=== PATIENT | female | born 1940 | race Asian ===

== ENCOUNTER 2022-04-27 13:12 | Inpatient (IN) | payer MEDICARE ==
[~2022-04-27] VITALS: Ht 167.6 cm; Wt 61.2 kg
--- NOTE | 2022-04-27 14:16 | NUR ---
DR BENZ AT BEDSIDE FOR EVAL
--- NOTE | 2022-04-27 14:26 | NUR ---
COVID SWAB COLLECTED AND SENT TO LAB
--- NOTE | 2022-04-27 14:52 | NUR ---
urine sample collected and sent to lab
--- NOTE | 2022-04-27 14:59 | NUR ---
PER MATTRESS WEAVER, NOT ENOUGH URINE SAMPLE. INFORMED
[2022-04-27 15:11] LABS: BILIRUBIN,URINE NEGATIVE (NEGATIVE); COLOR,URINE YELLOW (YELLOW); LEUKOCYTE ESTERASE ,URINE TRACE (NEGATIVE); NITRITE, URINE NEGATIVE (NEGATIVE); PROTEIN,URINE NEGATIVE (NEGATIVE); UGLUCOSE NEGATIVE (NEGATIVE)
[2022-04-27 15:13] LABS: BASOPHILS # (AUTO) 0.1 K/uL (0.0-0.2); BASOPHILS % (AUTO) 0.7 % (0.0-2.0); EOSINOPHILS % (AUTO) 1.3 % (0.0-6.0); HEMATOCRIT 38 % (33-45); HEMOGLOBIN 12.2 g/dL (11.5-14.8); LYMPHOCYTES # (AUTO) 1.3 K/uL (0.8-4.8); LYMPHOCYTES % (AUTO) 17.3 % (20.0-44.0); MEAN CORPUSCULAR HGB CONC 32 g/dl (31.0-36.0); MEAN CORPUSCULAR VOLUME 84 fL (82-100); MONOCYTES # (AUTO) 0.6 K/uL (0.1-1.30); MONOCYTES % (AUTO) 7.8 % (2.0-12.0); NEUTROPHILS # (AUTO) 5.4 K/uL (1.8-8.9); NEUTROPHILS % (AUTO) 72.9 % (43.0-81.0); PLATELET COUNT (AUTO) 268 K/uL (150-450); WHITE BLOOD COUNT (AUTO) 7.3 K/uL (4.3-11.0)
[2022-04-27 15:27] LABS: CALCIUM, SERUM 8.7 mg/dL (8.5-10.1); CARBON DIOXIDE 25 mmol/L (21-32); CHLORIDE 108 mmol/L (98-107); CREATININE 0.7 mg/dL (0.6-1.3); GLUCOSE 100 mg/dL (74-106); POTASSIUM 3.7 mmol/L (3.5-5.1); SODIUM SERUM 141 mmol/L (136-145); UREA NITROGEN, BLOOD 27 mg/dL (7-18)
[2022-04-27 15:52] LABS: ALANINE AMINOTRANSFERASE 20 U/L (12-78); ALBUMIN 3.2 g/dL (3.4-5.0); ALCOHOL, BLOOD < 3 mg/dL (0-0); ALKALINE PHOSPHATASE 124 U/L (46-116); ASPARTATE AMINOTRANSFERASE 16 U/L (15-37); BILIRUBIN,DIRECT 0.1 mg/dL (0.0-0.2); BILIRUBIN,TOTAL 0.5 mg/dL (0.2-1.0); TOTAL PROTEIN, SERUM 6.5 g/dL (6.4-8.2)
--- NOTE | 2022-04-27 16:41 | NUR ---
BED 218-B
--- NOTE | 2022-04-27 16:45 | NUR ---
REPORT GIVEN TO CAMILO NAJERA OF [employer]
--- NOTE | 2022-04-27 16:55 | NUR ---
TRANSPORTED TO FLOOR, STABLE CONDITION
[2022-04-27 17:01] LABS: BACTERIA,URINE RARE /HPF (None Seen); RBC,URINE 0-2 /HPF (0-2); WBC,URINE 0-2 /HPF (0-3)
[2022-04-27] MEDS ORDERED: LOSA50TA39 PO (17:54)
[2022-04-27] MEDS ORDERED: MAGNESIUM HYDROXIDE 30 ML UDC PO PRN (18:00)
[2022-04-27] MEDS ORDERED: LORAZEPAM 0.5 MG TABLET PO PRN (18:00)
[2022-04-27] MEDS ORDERED: ACETAMINOPHEN 325 MG TABLET PO PRN (18:00)
[2022-04-27] MEDS ORDERED: MAG HYDROX/AL HYDROX/SIMETH 30 ML UDC PO PRN (18:00)
[2022-04-27] MEDS ORDERED: ZOLPIDEM TARTRATE 5 MG TABLET PO PRN (18:00)
[2022-04-27 18:11] VITALS: BP 145/51
--- NOTE | 2022-04-27 18:30 | NUR ---
RB-CO: NOTIFIED DR RODRIGUEZ REGARDING THIS ADMISSION AND GAVE ADMITTING ORDERS.
[2022-04-27 20:00] VITALS: BP 140/85
[2022-04-27 20:30] VITALS: BP 140/85
[2022-04-27] MEDS ORDERED: BLOOD SUGAR DIAGNOSTIC 1 EACH STRIP IN ONE (21:00)
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
[2022-04-27] MEDS ORDERED: diphenhydrAMINE HCL ELIX 25 MG/10 ML UDC PO PRN (23:00)
[2022-04-27] MEDS ORDERED: diphenhydrAMINE HCL 25 MG CAPSULE PO PRN (23:00)
--- NOTE | 2022-04-28 07:27 | NUR ---
[facility] RN OPENING NOTE RECEIVED PT IN BED AWAKE. A/O X2, ABLE TO MAKE NEEDS KNOWN. REORIENTED PT NEEDED. PT IS COOPERATIVE OF CARE. PT IS CALM WITH NO C/O FEELING ANXIOUSNESS OR IRRITABILITY AT THIS TIME. SAFETY MEASURES IN PLACE AND MAINTAINED. CALL LIGHT WITHIN REACH. WILL CONTINUE TO MONITOR PT.
[2022-04-28 08:00] VITALS: BP 128/52
[2022-04-28 08:03] LABS: ALBUMIN 2.9 g/dL (3.4-5.0); BILIRUBIN,TOTAL 0.7 mg/dL (0.2-1.0); CALCIUM, SERUM 8.7 mg/dL (8.5-10.1); CREATININE 0.6 mg/dL (0.6-1.3); POTASSIUM 3.9 mmol/L (3.5-5.1); TOTAL PROTEIN, SERUM 6.2 g/dL (6.4-8.2)
[2022-04-28] MEDS: LOSARTAN POTASSIUM 50 MG TABLET PO SCH (09:26)
--- NOTE | 2022-04-28 09:28 | NUR ---
RN NOTE PT C/O ITCHINESS IN HER UPPER AND LOWER EXTREMITIES. BENADRYL 25MG 1 CAP GIVEN ORDERED PRN Q8H FOR ITCHING. WILL MONITOR AND REASSESS PT.
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
--- NOTE | 2022-04-28 10:28 | NUR ---
LIZZETTE Initial Discharge Plan: Patient currently was staying at [facility] located at [address] [place] [id number]. Pt unsure if she will return back. LIZZETTE will work with pt, family, and MD to help coordinate appropriate discharge,
--- NOTE | 2022-04-28 10:29 | NUR ---
Treatment Plan: Pt refused to sign treatment plan and was suspicious.
--- NOTE | 2022-04-28 11:44 | NUR ---
LIZZETTE Family Contact: LIZZETTE spoke with patient's daughter Ana ([phone]) who is currently in [place] and will be returning back tomorrow 04/29/2022. She stated that pt lives with her when she comes to [place]. She reported that pt has been here in [place] for a month and then went to the [facility] with her father. Daughter expressed that for the past ten years pt has been have psychiatric issues but has not been treated. She expressed that in [facility] she was seen by a specialist who stated pt has Parkinsons, however, daughter then brought pt to [place] and pt saw a specialist who did an MRI and stated that she does not have Parkinsons and slowly they took pt off the medications. Daughter shared that pt has been delusional stating that people are stealing her house and money. She reported that she has assumptions that father is cheating. She did report that they do have a toxic relationship. Daughter stated that pt needs help and needs to be medicated. Daughter did stated if she would have to take pt back to her place she would. She stated that she is currently in the process of selling her house. LIZZETTE discussed treatment/discharge plan with daughter.
--- NOTE | 2022-04-28 13:01 | NUR ---
[facility] RN NOTE PT IN BED RESTING. A/O X2, ABLE TO MAKE NEEDS KNOWN. REORIENTED PT NEEDED. PT REMAINS COOPERATIVE OF CARE. PT IS CALM WITH NO C/O FEELING ANXIOUSNESS OR IRRITABILITY AT THIS TIME. SAFETY MEASURES MAINTAINED. CALL LIGHT WITHIN REACH. WILL CONTINUE TO MONITOR PT.
--- NOTE | 2022-04-28 13:48 | NUR ---
LIZZETTE Note: Pt's Say ([phone]) came to visit the pt to drop of pt's medication. SW gave to charge nurse Tala. Say had concerns of pt that she has been having delusions and hallucinations. He stated that she has become unmanageable and it has been difficult for him to take care of her.
--- NOTE | 2022-04-28 15:27 | NUR ---
[facility] RN NOTE PT'S BROUGHT IN HER HOME MEDICATION, LEVOTHYROXINE 25MG 1 TAB ONCE A DAY. CALLED DR. DUBOSE AND MADE HER AWARE OF HOME MEDICATION WITH ORDERS TO CONTINUE HER LEVOTHYROXINE MEDICATION.
[2022-04-28 16:00] VITALS: BP 141/60
--- NOTE | 2022-04-28 19:15 | NUR ---
GPS RN NOTES PATIENT IN HER ROOM RESTING IN BED COMFORTABLY. A/OX3. NO S/SX OF ACUTE DISTRESS NOTED. PATIENT IS COOPERATIVE WITH CARE BUT ANXIOUS AT TIMES, GUARDED, DENIES SI/HI AT THIS TIME. SAFETY MEASURES IN PLACE. WILL CONTINUE TO MONITOR Q15MIN ROUNDS FOR SAFETY AND BEHAVIOR.
[2022-04-28 20:00] VITALS: BP 152/70
[2022-04-28] MEDS: QUETIAPINE FUMARATE 25 MG TABLET PO SCH (21:38)
--- NOTE | 2022-04-29 07:00 | NUR ---
[facility]PS RN OPENING NOTES PATIENT LAYING IN BED, A/O X 3, ABLE TO MAKE NEEDS KNOWN. TOLERATING WELL ON ROOM AIR WITH NO S/S RESPIRATORY DISTRESS. NO COMPLAINTS OF PAIN OR DISCOMFORT AT THIS TIME. PATIENT IS CALM BUT BECOMES AGITATED WHEN DISCUSSING HER . SAFETY MEASURES IN PLACE: BED IN LOWEST LOCKED POSITION, SIDE RAILS UP X 2, CALL LIGHT WITHIN REACH. WILL CONTINUE TO MONITOR.
[2022-04-29] MEDS: LEVOTHYROXINE SODIUM 25 MCG TABLET PO SCH (07:35)
[2022-04-29 08:00] VITALS: BP 128/56
[2022-04-29] MEDS: ESCITALOPRAM OXALATE (10 MG) 10 MG TABLET PO SCH (09:03)
[2022-04-29] MEDS: LOSARTAN POTASSIUM 50 MG TABLET PO SCH (09:03)
--- NOTE | 2022-04-29 09:53 | NUR ---
LIZZETTE Family Contact: LIZZETTE spoke with patient's daughter Ana ([phone]) and she stated that if pt is released she is willing to machine operator hop picker pt. LIZZETTE notified Dr. Smith and Dr. Smith will contact family to discuss furthermore.
[2022-04-29 16:00] VITALS: BP 144/79
--- NOTE | 2022-04-29 19:29 | NUR ---
[facility]PS RN CLOSING NOTES PATIENT LAYING IN BED, A/O X 3, ABLE TO MAKE NEEDS KNOWN. TOLERATING WELL ON ROOM AIR WITH NO S/S RESPIRATORY DISTRESS. NO COMPLAINTS OF PAIN OR DISCOMFORT AT THIS TIME. PATIENT IS CALM BUT BECOMES AGITATED WHEN DISCUSSING HER . SAFETY MEASURES IN PLACE: BED IN LOWEST LOCKED POSITION, SIDE RAILS UP X 2, CALL LIGHT WITHIN REACH. ALL NEEDS MET. WILL ENDORSE TO POLE LIFT OPERATOR FOR SABRINA.
--- NOTE | 2022-04-29 19:30 | NUR ---
[facility]PS RN NOTE, RECEIVED PATIENT AWAKE AND IN BED, NO S/S OR COMPLAINTS OF PAIN AT THIS TIME. PATIENT IS DISPLAYING NO S/S OF APPARENT DISTRESS AT THIS TIME. PATIENT BREATHING IS UNLABORED WITH EQUAL RISE AND FALL OF THE CHEST. PATIENT IS ALERT AND ORIENTED X 3 ON ROOM AIR WITH A SPO2 95%. PATIENT IS COMPLIANT WITH MEDICATIONS, LABILE, DEMANDING, PARANOID, AND COOPERATIVE. PATIENT DENIES SUICIDAL AND HOMICIDAL IDEATIONS AT THIS TIME. PATIENT ASSISTED WITH TURNING AND REPOSITIONING Q2HR AND PRN FOR COMFORT AND CIRCULATION. PATIENT HAS NO NEEDS AT THIS TIME. PATIENT EDUCATED ON THE USE OF THE CALL GILMAN. PATIENT BED SIDE RAILS UP X 2 FOR SAFETY. PATIENT BED IS LOCKED, LOW, WITH BED ALARM ON. WILL CONTINUE TO MONITOR THIS PATIENT Q15 MINUTES WITH THE HELP OF STAFF TO MAINTAIN SAFETY.
[2022-04-29 20:00] VITALS: BP 157/77
[2022-04-29] MEDS: QUETIAPINE FUMARATE 25 MG TABLET PO SCH (22:00)
[2022-04-30 08:00] VITALS: BP 134/68
[2022-04-30 08:29] VITALS: BP 134/68
[2022-04-30] MEDS: LEVOTHYROXINE SODIUM 25 MCG TABLET PO SCH (08:29)
[2022-04-30] MEDS: LOSARTAN POTASSIUM 50 MG TABLET PO SCH (08:29)
[2022-04-30] MEDS: ESCITALOPRAM OXALATE (10 MG) 10 MG TABLET PO SCH (08:30)
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
--- NOTE | 2022-05-02 08:11 | NUR ---
LATE ENTRY DISCHARGE 04/30/2022: Patient was discharged to [facility] [place] [address] [place] [address]; ([phone]). Patients daughter will picker pt, please contact her Ana ([phone]) to find out time.Patients Say ([phone]) is aware. Patient is alert and oriented x3. Patient happy to be discharged. Patient denies visual/auditory hallucinations. Patient denies suicidal or homicidal ideation. Patient will follow up with Dr. Uriel Love located at [address] [facility] [address] [place] [address]; ([phone]) on May 18 at 1:30PM who will monitor and provide patients psychotropic medications. Patient presents with euthymic mood and congruent affect.
== END 2022-04-30 12:20 | disposition home or self-care (01) | DRG 885 ==
LOC: ER 13:15 → GPS 17:30
PROVIDERS: ADMIT Psychiatry & Neurology Psychiatry; ATTEND Student in an Organized Health Care Education/Training Program
DX: F32.3 Major depressive disorder, single episode, severe with psychotic features (principal); F29 Unspecified psychosis not due to a substance or known physiological condition; E11.9 Type 2 diabetes mellitus without complications; I10 Essential (primary) hypertension; E03.9 Hypothyroidism, unspecified
CPT/HCPCS: 36415; 80048-TC; 80053-TC; 80061-TC; 80076-TC; 81001; 82962-TC; 84439-TC; 84443-TC; 85025-TC; C9803; G0480; Q0163